=== PATIENT | female | born 1995 | race Caucasian/White ===

== ENCOUNTER 2017-07-28 04:35 | Emergency (ER) | payer OTHER ==
[2017-07-28] MEDS ORDERED: ONDANSETRON HCL/PF 4 MG/ 2ML VIAL IVP ONE (05:03)
[2017-07-28] MEDS ORDERED: 0.9 % SODIUM CHLORIDE 1,000 ML IV ONE (05:04)
[2017-07-28] MEDS ORDERED: HYDROmorphone HCL/PF 1 MG/ML DISP.SYRIN IVP ONE (05:05)
[2017-07-28 05:21] LABS: BASOPHILS % 0.4 (0.0-1.5); EOSINOPHILS % 1.6 % (0.0-6.8); MEAN CORPUSCULAR HEMOGLOBIN 29.7 pg (28.0-34.0); MEAN CORPUSCULAR VOLUME 88.2 fl (80.0-100.0); MONOCYTES % 5.6 % (0.0-11.0); NEUTROPHILS # 4.8 # k/uL (1.4-7.7)
[2017-07-28 05:26] LABS: eGFR (African) > 60; eGFR (Non-African) > 60
--- NOTE | 2017-07-28 05:42 | Diagnostic Imaging Report ---
REAGAN RG [facility] [address] [facility] [address] [place] [address]. [id number] Report Submission Date: Jul 28, 2017 5:35:09 AM TRUCK RAILROAD AND BUS MOTOR MECHANIC Patient Study Name: PENNY CALIX Date: Jul 28, 2017 5:21:24 AM TRUCK RAILROAD AND BUS MOTOR MECHANIC Modality Type: CR Gender: F Description: ABDOMEN : 89 Institution: [facility] Physician: REAGAN RG HISTORY: 22-year-old female with abdominal pain. COMPARISON: None available. TECHNIQUE: AP views of the abdomen were performed. FINDINGS: No abnormal bowel dilatation. Gas is present in the distal colon. No abnormal calcifications are identified overlying the urinary tract. Surgical clips in the right upper quadrant are suggestive of prior cholecystectomy. There is a lumbosacral transitional vertebrae. IMPRESSION: No evidence of bowel obstruction. Electronically signed on Jul 28, 2017 5:35:09 AM TRUCK RAILROAD AND BUS MOTOR MECHANIC by: Rolando BURR
[2017-07-28] MEDS ORDERED: DICYCLOMINE HCL 20 MG TABLET PO ONE ×2 (06:05→06:06)
--- NOTE | 2017-07-28 06:07 | ED Physician Documentation ---
General Adult - HISTORIAN Historian: patient - HPI Stated Complaint: abd pain Chief Complaint: General Adult Onset: days ago (2) Timing: still present Severity: moderate Further Comments: yes (Pt is a 22 yo female with abd pain/cramping x 2 days. Pt has had nausea. No urinary sx. LMP was 1 week ago. Pt states that bm's have been normal. Pain goes through to her back, and occurs intermittently throughout the day. No fever.) - ROS CONST: no problems EYES/ENT: none CVS/RESP: none GI/: abdominal pain, nausea MS/SKIN/LYMPH: none - PAST HX Past History: other (adenoids, cholecystectomy) Allergies/Adverse Reactions: Allergies Allergy/AdvReac Type Severity Reaction Status Date / Time sulfamethoxazole Allergy Verified 07/28/17 04:41 [From Bactrim] trimethoprim [From Bactrim] Allergy Verified 07/28/17 04:41 Home Medications: Ambulatory Orders Medication Instructions Recorded NK [NK] 07/28/17 - SOCIAL HX Smoking History: non-smoker - FAMILY HX Family History: No - VITAL SIGNS Vital Signs: Vital Signs Temp Pulse Resp BP Pulse Ox 97.5 F L 76 16 122/59 98 07/28/17 04:41 07/28/17 04:41 07/28/17 04:41 07/28/17 04:41 07/28/17 04:41 - REVIEWED ASSESSMENTS Nursing Assessment Reviewed: Yes Vitals Reviewed: Yes Progress - Progress Progress: NS 1 L IVF Zofran 4 mg IV Dilaudid 1 mg IV X-ray abdomen: No abnormal bowel dilatation. Gas is present in the distal colon. No abnormal calcifications are identified overlying the urinary tract. Surgical clips in the right upper quadrant are suggestive of prior cholecystectomy. There is a lumbosacral transitional vertebrae. IMPRESSION: No evidence of bowel obstruction. improved Bentyl 20 mg po in ER Rx Bentyl 20 mg. Take one by mouth up to 4 times daily for abdominal pain/ cramping. #20 RF: 1 ED Results Lab/Radiology - Lab Results Lab Results: Lab Results 07/28/17 07/28/17 05:08 05:08 WBC 8.00 K/ul K/ul (4.00-12.00) RBC 4.46 M/ul M/ul (3.90-5.20) Hgb 13.2 g/dL g/dL (12.0-16.0) Hct 39.3 % % (34.5-46.5) MCV 88.2 fl fl (80.0-100.0) MCH 29.7 pg pg (28.0-34.0) MCHC 33.7 g/dL g/dL (30.0-36.0) RDW 13.9 % % (11.3-14.3) Plt Count 279 K/mm3 K/mm3 (130-400) Neut % (Auto) 59.8 % % (39.0-79.0) Lymph % (Auto) 30.8 % % (16.0-50.0) [place] % (Auto) 5.6 % % (0.0-11.0) Eos % (Auto) 1.6 % % (0.0-6.8) Baso % (Auto) 0.4 (0.0-1.5) Neut # (Auto) 4.8 # k/uL # k/uL (1.4-7.7) Lymph # (Auto) 2.5 # k/uL # k/uL (0.6-4.0) [place] # (Auto) 0.4 # k/uL # k/uL (0.0-0.9) Eos # (Auto) 0.1 # k/uL # k/uL (0.0-0.6) Baso # (Auto) 0.0 # k/uL # k/uL (0.0-0.5) Reactive Lymphs % 1.8 % % (0.0-5.0) Reactive Lymphs # 0.1 # k/uL # k/uL (0.0-0.8) Sodium 139 mmol/L mmol/L (136-145) Potassium 3.5 mmol/L mmol/L (3.5-5.1) Chloride 100 mmol/L mmol/L (98-107) Carbon Dioxide 28 mmol/L mmol/L (22-30) BUN 11 mg/dL mg/dL (7-17) Creatinine 0.70 mg/dL mg/dL (0.52-1.04) Estimated Creat Clear 202 Est GFR ( Amer) > 60 (60 - ) Est GFR (Non-Af Amer) > 60 (60 - ) Glucose 96 mg/dL mg/dL (74-106) Calcium 9.1 mg/dL mg/dL (8.4-10.2) Total Bilirubin 0.2 mg/dL mg/dL (0.2-1.3) AST 15 U/L U/L (15-46) ALT 26 U/L U/L (13-69) Alkaline Phosphatase 59 U/L U/L (38-126) Total Protein 7.9 g/dL g/dL (6.3-8.2) Albumin 4.2 g/dL g/dL (3.5-5.0) Lipase 164 U/L U/L (23-300) - Orders Orders: ED Orders Category Date Time Status Place IV Lock 1T Care 07/28/17 05:04 Active ABDOMEN 1 VIEW [RAD] Stat Exams 07/28/17 Completed CBC/PLATELET/DIFF Routine Lab 07/28/17 05:08 Completed CMP Routine Lab 07/28/17 05:08 Completed HCG [URINE HCG] Stat Lab 07/28/17 04:45 Ordered LIPASE Stat Lab 07/28/17 05:08 Completed URINALYSIS Routine Lab 07/28/17 Ordered 0.9 % Sodium Chloride [Normal Saline] 1,000 ml Med 07/28/17 05:04 Discontinued IV Q1H Dicyclomine HCl [Bentyl] Med 07/28/17 06:05 Once 20 mg PO NOW ONE HYDROmorphone HCL/PF [Dilaudid] Med 07/28/17 05:05 Discontinued 1 mg IVP NOW ONE Ondansetron HCl/Pf [Zofran 4 mg/2 ml] Med 07/28/17 05:03 Discontinued 4 mg IVP NOW ONE General Adult Physical Exam - PHYSICAL EXAM GENERAL APPEARANCE: moderate distress EENT: pharynx normal NECK: normal inspection, supple RESPIRATORY: no resp distress, chest non-tender, breath sounds normal CVS: reg rate & rhythm, heart sounds normal ABDOMEN: soft, no organomegaly, decreased BS, other (diffuse abd tenderness) BACK: normal inspection, CVA tenderness (R) SKIN: warm/dry, normal color EXTREMITIES: non-tender, normal range of motion, no evidence of injury NEURO: oriented X3, motor nml, sensation nml Discharge Clincal Impression: abdominal pain, possible IBS Condition: Stable Disposition: 01 HOME, SELF-CARE Decision to Admit: NO Decision Time: 06:13
[2017-07-28 06:27] VITALS: BP 112/80
[2017-07-28 07:11] LABS: APPEARANCE,URINE CLEAR (CLEAR); COLOR,URINE YELLOW (YELLOW); OCCULT BLOOD,URINE NEGATIVE (NEGATIVE); UROBILINOGEN URINE 0.2 Eu (0.2-1.0)
== END 2017-07-28 06:20 | disposition home or self-care (01) ==
LOC: ED 04:35
DX: R10.9 Unspecified abdominal pain (principal)
CPT/HCPCS: 74000; 80053; 81002; 81025; 83690; 85025; J1170; J2405; J7030; 96361; 96374; 96375; 99283; S1016

== ENCOUNTER 2017-08-05 00:54 | Emergency (ER) | payer OTHER ==
--- NOTE | 2017-08-05 01:08 | ED Physician Documentation ---
Abdominal Pain - HISTORIAN Historian: patient - HPI Stated Complaint: abdominal pain Chief Complaint: Abdominal Pain Onset: other (14 days) Duration: constant (worse at night ) Timing: worse Context: denies: out of country travel, bad food, recent trauma Severity: severe (moving all over bed and rocking ) Quality: pain, cramping, sharp, stabbing Associated Symptoms: nausea, other (dark stool x 1 (one week ago)). denies: fever, chills, vomiting, coffee ground emesis, bloody emesis, diarrhea, bloody stools Exacerbated by: movements, walking, other (laying down to sleep ). denies: cough Relieved by: nothing Further Comments: yes (she reports her last treatment was not helpful) - ROS CONST: denies: recent illness GI/: denies: constipation, problems urinating CVS/RESP: denies: palpitations, shortness of breath, hurts to breath EYES/ENT: none MS/SKIN/LYMPH: none NEURO/PSYCH: none, dizziness. denies: headache - SOCIAL HX Smoking History: non-smoker Alcohol Use: none Drug Use: none - FAMILY HX Family History: none - PAST HX Past History: other ("maybe" was told she IBS once ) Ischemic Bowel Risk Factors: none Other History: none Surgeries/Procedures: none Immunizations: referred to PCP Home Medications: Ambulatory Orders Medication Instructions Recorded NK [NK] 07/28/17 Allergies/Adverse Reactions: Allergies Allergy/AdvReac Type Severity Reaction Status Date / Time sulfamethoxazole Allergy Verified 08/05/17 01:10 [From Bactrim] trimethoprim [From Bactrim] Allergy Verified 08/05/17 01:10 - VITAL SIGNS Vital Signs: Vital Signs Temp Pulse Resp BP Pulse Ox 97.7 F 82 18 138/84 99 08/05/17 00:55 08/05/17 00:55 08/05/17 00:55 08/05/17 00:55 08/05/17 00:55 - REVIEWED ASSESSMENTS Nursing Assessment Reviewed: Yes Vitals Reviewed: Yes Progress - Progress Progress: states she has less pain and resolved nausea She does states she will arrange a PCP today ED Results Lab/Radiology - Lab Results Lab Results: Lab Results 08/05/17 08/05/17 08/05/17 01:43 01:43 01:43 WBC 8.90 K/ul K/ul (4.00-12.00) RBC 4.41 M/ul M/ul (3.90-5.20) Hgb 13.3 g/dL g/dL (12.0-16.0) Hct 38.3 % % (34.5-46.5) MCV 86.9 fl fl (80.0-100.0) MCH 30.1 pg pg (28.0-34.0) MCHC 34.6 g/dL g/dL (30.0-36.0) RDW 14.0 % % (11.3-14.3) Plt Count 299 K/mm3 K/mm3 (130-400) Neut % (Auto) 61.2 % % (39.0-79.0) Lymph % (Auto) 29.6 % % (16.0-50.0) [place] % (Auto) 5.6 % % (0.0-11.0) Eos % (Auto) 1.2 % % (0.0-6.8) Baso % (Auto) 0.5 (0.0-1.5) Neut # (Auto) 5.5 # k/uL # k/uL (1.4-7.7) Lymph # (Auto) 2.6 # k/uL # k/uL (0.6-4.0) [place] # (Auto) 0.5 # k/uL # k/uL (0.0-0.9) Eos # (Auto) 0.1 # k/uL # k/uL (0.0-0.6) Baso # (Auto) 0.0 # k/uL # k/uL (0.0-0.5) Reactive Lymphs % 1.8 % % (0.0-5.0) Reactive Lymphs # 0.2 # k/uL # k/uL (0.0-0.8) Sodium 138 mmol/L mmol/L (136-145) Potassium 3.8 mmol/L mmol/L (3.5-5.1) Chloride 99 mmol/L mmol/L (98-107) Carbon Dioxide 26 mmol/L mmol/L (22-30) BUN 11 mg/dL mg/dL (7-17) Creatinine 0.80 mg/dL mg/dL (0.52-1.04) Estimated Creat Clear 177 Est GFR ( Amer) > 60 (60 - ) Est GFR (Non-Af Amer) > 60 (60 - ) Glucose 97 mg/dL mg/dL (74-106) Calcium 9.9 mg/dL mg/dL (8.4-10.2) Total Bilirubin 0.3 mg/dL mg/dL (0.2-1.3) AST 17 U/L U/L (15-46) ALT 26 U/L U/L (13-69) Alkaline Phosphatase 56 U/L U/L (38-126) Total Protein 8.0 g/dL g/dL (6.3-8.2) Albumin 4.3 g/dL g/dL (3.5-5.0) Lipase 115 U/L U/L (23-300) - Radiology Radiology Impressions: TECHNIQUE: 5 mm contiguous axial images of the abdomen and pelvis non contrast. FINDINGS: The lung bases are clear. The liver, spleen, adrenal glands and pancreas are normal. The gallbladder has been removed. No renal stones are retroperitoneal masses are identified. Fluid- filled small and large bowel loops are consistent with ileus gastroenteritis. The appendix is unremarkable. The uterus and ovaries are within normal limits. There is trace free pelvic fluid. No retroperitoneal mass or aortic aneurysm. Visualized spine is unremarkable IMPRESSION: Cholecystectomy. Negative appendix Probable ileus or gastroenteritis affecting the bowel Trace free pelvic fluid. Electronically signed on Aug 05, 2017 1:49:41 AM SECTION LEADER by: Jhonathan Shea - Orders Orders: ED Orders Category Date Time Status Place IV Lock 1T Care 08/05/17 01:[address] ABD & PELVIS W/O CON Stat Exams 08/05/17 Taken CBC/PLATELET/DIFF Routine Lab 08/05/17 01:43 Completed CHLAMYDIA & GONORRHOEAE Stat Lab 08/05/17 01:46 Stop Req CMP [CMP] Routine Lab 08/05/17 01:43 Completed LIPASE Stat Lab 08/05/17 01:43 Completed UA W/MICRO IF INDICATED Routine Lab 08/05/17 01:14 Ordered URINE HCG Stat Lab 08/05/17 01:15 Ordered 0.9 % Sodium Chloride [Normal Saline] 1,000 ml Med 08/05/17 02:03 Discontinued IV Q1H Ketorolac Tromethamine [Toradol] Med 08/05/17 01:17 Discontinued 30 mg IVP NOW ONE Ondansetron HCl/Pf [Zofran 4 mg/2 ml] Med 08/05/17 02:05 Discontinued 4 mg IVP NOW ONE Simethicone [Gas-X] Med 08/05/17 02:52 Discontinued 80 mg PO 1T ONE Abdominal Pain Physical Exam - Physical Exam General Appearance: mild distress EENT: eye inspection normal NECK: normal inspection RESPIRATORY: no resp distress, chest non-tender, breath sounds normal CVS: reg rate & rhythm, heart sounds normal, no murmur ABDOMEN: soft, normal bowel sounds, tenderness (she complained of pain with palpation generalized but stated after exam pain with palpation over epigastric area only - does state she has CVA tenderness on both sides during exam ). No : McBurney's point tenderne, rebound, distended, guarding BACK: normal inspection SKIN: warm/dry, normal color EXTREMITIES: non-tender, normal range of motion, no evidence of injury, no edema NEURO: oriented X3, CN's nml as tested, motor nml, sensation nml, mood/affect nml Vital Signs: Vital Signs Temp Pulse Resp BP Pulse Ox 97.7 F 82 18 138/84 99 08/05/17 00:55 08/05/17 00:55 08/05/17 00:55 08/05/17 00:55 08/05/17 00:55 Discharge Clincal Impression: Gastroenteritis Referrals: Primary Doctor,Joyce [Primary Care Provider] - 2 Days Comments: Note to rest her gut and contact PCP She will return for any change in symptoms Condition: Stable Disposition: 01 HOME, SELF-CARE Decision to Admit: NO Date of Decison to Admit: 08/05/17 Decision Time: 03:41
[2017-08-05] MEDS: KETOROLAC TROMETHAMINE 30 MG/1ML VIAL IVP ONE (01:26)
[2017-08-05 01:58] LABS: BASOPHILS % 0.5 (0.0-1.5); EOSINOPHILS % 1.2 % (0.0-6.8); MEAN CORPUSCULAR HEMOGLOBIN 30.1 pg (28.0-34.0); MEAN CORPUSCULAR VOLUME 86.9 fl (80.0-100.0); MONOCYTES % 5.6 % (0.0-11.0); NEUTROPHILS # 5.5 # k/uL (1.4-7.7)
[2017-08-05 01:59] LABS: eGFR (African) > 60; eGFR (Non-African) > 60
[2017-08-05] MEDS: 0.9 % SODIUM CHLORIDE 1,000 ML IV ONE (02:10)
[2017-08-05] MEDS: ONDANSETRON HCL/PF 4 MG/ 2ML VIAL IVP ONE (02:12)
[2017-08-05] MEDS: SIMETHICONE 80 MG TAB.CHEW PO ONE (03:00)
[2017-08-05 03:59] VITALS: BP 131/71
[2017-08-05 06:04] LABS: APPEARANCE,URINE CLEAR (CLEAR); COLOR,URINE YELLOW (YELLOW)
[2017-08-05 06:05] LABS: OCCULT BLOOD,URINE NEGATIVE (NEGATIVE); UROBILINOGEN URINE 0.2 Eu (0.2-1.0)
--- NOTE | 2017-08-05 06:53 | Diagnostic Imaging Report ---
WANDA JORDAN [facility] [address] [facility] [address] [place], [place]. [address] Report Submission Date: Aug 05, 2017 1:49:41 AM STRATEGIC DEVELOPMENT MANAGER Patient Study Name: PENNY CALIX Date: Aug 05, 2017 1:26:09 AM STRATEGIC DEVELOPMENT MANAGER Modality Type: CT\SR Gender: F Description: CT ABD & PELVIS W/O CO : 95 Institution: [facility] Physician: WANDA JORDAN CT abdomen and pelvis without contrast Date of study: The 05 August 2017 CLINICAL HISTORY: ABDOMINAL PAIN AND LOW BACK PAIN (Hx) / ABDOMINAL PAIN ( DICOM Hx) TECHNIQUE: 5 mm contiguous axial images of the abdomen and pelvis non contrast. FINDINGS: The lung bases are clear. The liver, spleen, adrenal glands and pancreas are normal. The gallbladder has been removed. No renal stones are retroperitoneal masses are identified. Fluid- filled small and large bowel loops are consistent with ileus gastroenteritis. The appendix is unremarkable. The uterus and ovaries are within normal limits. There is trace free pelvic fluid. No retroperitoneal mass or aortic aneurysm. Visualized spine is unremarkable IMPRESSION: Cholecystectomy. Negative appendix Probable ileus or gastroenteritis affecting the bowel Trace free pelvic fluid. Electronically signed on Aug 05, 2017 1:49:41 AM STRATEGIC DEVELOPMENT MANAGER by: Jhonathan BURR
== END 2017-08-05 03:58 | disposition home or self-care (01) ==
LOC: ED 00:54
DX: K52.9 Noninfective gastroenteritis and colitis, unspecified (principal)
CPT/HCPCS: 74176; 80053; 81002; 81025; 83690; 85025; 87801; J1885; J2405; J7030; 96361; 96374; 96375; 99283; S1016